=== PATIENT | male | born 1980 | race Two or more races ===

== ENCOUNTER 2025-04-04 14:37 | Inpatient (IN) | payer MEDICAID, OTHER ==
[~2025-04-04] VITALS: Ht 167.6 cm; Wt 100.0 kg
[~2025-04-04 14:37] MED LIST: FURO40TA4 PO; PANT40TA57 PO; SPIR100T4 PO
--- NOTE | 2025-04-04 15:13 | ED.PDOC ---
GI ASSESSMENT HPI Comments This is a 44 year old male MAURICIO presenting to the ED with chief complaint of abdominal pain. Patient reports that he has been experiencing RUQ abdominal pain since this morning after coughing, feeling a tearing sensation. Patient relays that he has also had associated SOB and abdominal distention for some time. Patient states he had last drank alcohol a month ago, has history of liver cirrhosis. EMS notes patient was given 100mcg of Fentanyl en route to the ED. Patient denies any chest pain, dizziness, fever, chills, N/V/D, or headache. Chief Complaint: Abdominal Pain Time Seen by MD: 15:08 Reviewed Notes: Nurses Notes, Finish Opener Notes, Medications, Allergies Allergies: Coded Allergies: NO KNOWN ALLERGIES (Unverified , 04/04/25) Information Source: Patient, Emergency Med Personnel Mode of Arrival: EMS Timing: Days Duration: Since onset Prehospital treatment: None Quality: Sharp Vomitus: None Stool: Normal Severity: Moderate Recent: None Recent Hx of: Liver Disease Pain Location: RUQ Modifying Factors: Nothing Associated sign and symptoms: Abdominal Pain Past Medical History PAST MEDICAL HISTORY: Liver Surgical History (Other): Paracentesis Family History Family History: Reviewed,noncontributory to illness Social History Smoker: Non-Smoker Alcohol: Sober Drugs: Denies Drug Use Lives In: Home Constitutional: denies: chills, diaphoresis, fatigue, fever, malaise, sweats, weakness, others EENTM: denies: blurred vision, double vision, ear bleeding, ear discharge, ear drainage, ear pain, ear ringing, eye pain, eye redness, hearing loss, mouth pain, mouth swelling, nasal discharge, nose bleeding, nose congestion, nose pain, photophobia, tearing, throat pain, throat swelling, voice changes, others Respiratory: reports: cough, shortness of breath; denies: hemoptysis, orthopnea, SOB at rest, SOB with excertion, stridor, wheezing, others Cardiovascular: denies: chest pain, dizzy spells, diaphoresis, Dyspnea on exertion, edema, irregular heart beat, left arm pain, lightheadedness, palpitations, PND, syncope, others Gastrointestinal: reports: abdomen distended, abdominal pain; denies: blood streaked bowels, constipated, diarrhea, dysphagia, difficulty swallowing, hematemesis, melena, nausea, poor appetite, poor fluid intake, rectal bleeding, rectal pain, vomiting, others Genitourinary: denies: burning, dysuria, flank pain, frequency, hematuria, incontinence, penile discharge, penile sore, pain, testicle pain, testicle swelling, urgency, others Neurological: denies: dizziness, fainting, headache, left sided numbness, left sided weakness, numbness, paresthesia, pre-existing deficit, right sided numbness, right sided weakness, seizure, speech problems, tingling, tremors, weakness, others Musculoskeletal: denies: back pain, gout, joint pain, joint swelling, muscle pain, muscle stiffness, neck pain, others Integumetry: reports: bruises, others (Jaundice); denies: change in color, change in hair/nails, dryness, laceration, lesions, lumps, rash, wounds Allergic/Immunocompromised: denies: Difficulty Healing, Frequent Infections, Hives, Itching, others Hematologic/Lymphatic: denies: anemia, blood clots, easy bleeding, easy bruising, swollen glands, others Endocrine: denies: excessive hunger, excessive sweating, excessive thirst, excessive urination, flushing, intolerance to cold, intolerance to heat, unexplained weight gain, unexplained weight loss, others Psychiatric: denies: anxiety, bipolar disorder, depression, hopeless, panic disorder, schizophrenia, sleepless, suicidal, others All Other Systems: Reviewed and Negative Physical Exam General Appearance: Moderate Distress, Normal HEENT: Normal ENT Inspection, Pharynx Normal, Scleral Icterus (L), Scleral Icterus (R), TMs Normal Neck: Full Range of Motion, Non-Tender, Normal, Normal Inspection Respiratory: Chest Non-Tender, No Accessory Muscle Use, No Respiratory Distress, Wheezing Cardiovascular: No Edema, No JVD, No Murmur, No Gallop, Normal Peripheral Pulses, Regular Rate/Rhythm Breast Exam: Deferred Gastrointestinal: Distended, No Organomegaly, No Pulsatile Mass, Normal Bowel Sounds, Soft Genitalia: Deferred Pelvic: Deferred Rectal: Deferred Extremities: No calf tenderness, Normal capillary refill, Normal range of motion, Non-tender, No pedal edema, Swelling (Left lower extremity) Musculoskeletal : Apperance: Normal Neurologic: Alert, audiometric technician II-XII nml as Tested, No Motor Deficits, Normal Affect, Normal Mood, No Sensory Deficits Cerebellar Function: NOT DONE Reflexes: NOT DONE Skin: Dry, Normal Color, Warm Peripheral Pulses: 3+ Radial (R), 3+ Radial (L) Lymphatic: No Adenopathy Was a procedure done? Was a procedure done?: No GI differential Dx Differential Diagnosis: Constipation, Diverticular disease, Esophagitis, Gastritis/PUD, Gastroenteritis X-Ray, Labs, Meds, VS Vital Signs Date Time Temp Pulse Resp B/P (MAP) Pulse Ox O2 Delivery O2 Flow Rate FiO2 04/04/25 14:43 98.8 119 16 146/92 95 98.8 Lab Test 04/04/25 14:47 Range/Units White Blood Count 8.2 4.4-10.8 10^3/uL Red Blood Count 2.90 L 4.5-5.90 10^6/uL Hemoglobin 11.4 L 13.5-17.5 g/dL Hematocrit 32.3 L 41.0-53.0 % Mean Corpuscular Volume 111.6 H 80.0-100.0 fL Mean Corpuscular Hemoglobin 39.3 H 28.0-32.0 pg Mean Corpuscular Hemoglobin Concent 35.2 32.0-36.0 g/dL Red Cell Distribution Width 16.6 H 11.8-14.3 % Platelet Count 88 L 140-450 10^3/uL Mean Platelet Volume 8.6 6.9-10.8 fL Neutrophils (%) (Auto) 60.5 37.0-80.0 % Lymphocytes (%) (Auto) 21.6 10.0-50.0 % Monocytes (%) (Auto) 11.2 0.0-12.0 % Eosinophils (%) (Auto) 5.3 0.0-7.0 % Basophils (%) (Auto) 1.4 0.0-2.0 % Neutrophils # (Auto) 5.0 1.6-8.6 10 ^3/uL Lymphocytes # (Auto) 1.8 0.4-5.4 10 ^3/uL Monocytes # (Auto) 0.9 0-1.3 10 ^3/uL Eosinophils # (Auto) 0.4 0-0.8 10 ^3/uL Basophils # (Auto) 0.1 0-0.2 10 ^3/uL Nucleated Red Blood Cells 0.2 % Platelet Estimate Pending Sodium Level 136 136-145 mmol/L Potassium Level 3.8 3.5-5.1 mmol/L Chloride Level 102 98-107 mmol/L Carbon Dioxide Level 25 20-31 mmol/L Anion Gap 9 5-15 Blood Urea Nitrogen < 5 L 9-23 mg/dL Creatinine 0.76 0.700-1.30 mg/dL Glomerular Filtration Rate Calc 115 >90 mL/min BUN/Creatinine Ratio 6.6 L 10.0-20.0 Serum Glucose 108 H 74-106 mg/dL Calcium Level 7.6 L 8.7-10.4 mg/dL Total Bilirubin 7.6 H 0.2-1.0 mg/dL Aspartate Amino Transferase (AST) 50 H 13-40 U/L Alanine Aminotransferase (ALT) 31 7-40 U/L Alkaline Phosphatase 134 H 46-116 U/L Total Protein 7.7 5.7-8.2 g/dL Albumin 2.3 L 3.2-4.8 g/dL Patient alert. Vitals stable. Abdomen is distended. Answering questions. Sclerae icterus. Liver enzymes elevated. Malnutrition. He did have a paracentesis. States that he has stopped drinking. Explained to the patient he will be admitted for further studies. Continue monitoring. Time of 1ST Reevaluation: 16:07 Reevaluation 1ST: Unchanged Patient Education/Counseling: Diagnosis, Treatment Family Education/Counseling: No Family Present SEPSIS Sepsis Screen Date sepsis recognized/suspect: Apr 04, 2025 Time Sepsis recognized/suspect: 8 Recent Procedure: No On Antibiotic Therapy: No Respiratory Rate >20: No Heart Rate >90: Yes Temp<36 C (96.8 F) or >38.3 C: No SBP <90 or MAP <65 mmHG: No New Acute Mental Status Change: No Is the patient on CPAP, BIPAP,: No Physician Orders Complete Blood Count (04/04/25 14:41) Chest Portable (04/04/25 14:41) Urinalysis (04/04/25 14:41) Ct Ab Pel Wo Con-No Oral Or Iv (04/04/25 14:41) Rbc Morphology (04/04/25 14:47) Vital Signs Date Time Temp Pulse Resp B/P (MAP) Pulse Ox O2 Delivery O2 Flow Rate FiO2 04/04/25 14:43 98.8 119 16 146/92 95 98.8 Laboratory Tests Test 04/04/25 14:47 White Blood Count 8.2 10^3/uL (4.4-10.8) Departure 1 Departure Time of Disposition: 15:43 Impression: Primary Impression: Liver cirrhosis Qualified Codes: K70.31 - Alcoholic cirrhosis of liver with ascites; K72.90 - Hepatic failure, unspecified without coma Additional Impressions: Severe malnutrition Congestive heart failure Qualified Codes: I50.43 - Acute on chronic combined systolic (congestive) and diastolic (congestive) heart failure Disposition: ADMITTED INPATIENT Admit to: Med Surg Condition: Guarded Critical Care Note Critical Care Time?: Yes (90 min-critical care time only) Stability Stability form required: No Heart Score Heart Score: Heart Score Response (Comments) Value History N/A 0 EKG N/A 0 Age N/A 0 Risk Factors N/A 0 Troponin N/A 0 Total 0 I personally scribed for JEREMY OLIVAREZ MD ([email or web address]) on 04/04/25 at 15:12. Electronically submitted by Scotty Schwartz ([email or web address]). JEREMY OLIVAREZ MD Apr 04, 2025 15:12
[2025-04-04 15:22] LABS: Alanine Aminotransferase 31 U/L (7-40); Anion Gap 9 (5-15); Carbon Dioxide 25 mmol/L (20-31); Chloride 102 mmol/L (98-107); Potassium 3.8 mmol/L (3.5-5.1); Total Protein 7.7 g/dL (5.7-8.2)
[2025-04-04 15:24] LABS: Hematocrit 32.3 % (41.0-53.0); Hemoglobin 11.4 g/dL (13.5-17.5); Mean Corpuscular Hemoglobin 39.3 pg (28.0-32.0); Mean Corpuscular Volume 111.6 fL (80.0-100.0); Nucleated Red Blood Cells % 0.2 %
[2025-04-04 15:28] LABS: Albumin 2.3 g/dL (3.2-4.8); Alkaline Phosphatase 134 U/L (46-116); BUN/Creatinine Ratio 6.6 (10.0-20.0); Bilirubin, Total 7.6 mg/dL (0.2-1.0); Blood Urea Nitrogen < 5 mg/dL (9-23); Calcium 7.6 mg/dL (8.7-10.4); Glucose 108 mg/dL (74-106); Sodium 136 mmol/L (136-145)
--- NOTE | 2025-04-04 15:53 | DVH ---
EXAM: CT CT AB PEL WO CON-NO ORAL OR IV History: liver Comparison Study: CT ABD/PEL on DOS: 03/11/25, CT ABD/PEL on DOS: 12/09/24 TECHNIQUE: Multidetector CT of the abdomen was performed from lung bases to pubic symphysis. Imaging was performed without IV contrast. Axial, coronal and sagittal multiplanar reformats were obtained from the axial data set by the technologist. Radiation Dose Information: CT Dose: CTDI volume is 21.89 mGy. Dose-length product is 1336.45 mGy*cm FINDINGS: Evaluation of solid organs is limited due to lack of intravenous contrast use. FINDINGS: Lung Bases: Mild atelectasis is seen at both lung bases. There is a mild left effusion. Liver: The liver is normal in size. No focal lesions. Gallbladder and Biliary Tree: Unremarkable Spleen: Unremarkable Pancreas: The pancreas is grossly normal in appearance. Adrenal Glands: Unremarkable Kidneys: Kidneys are grossly normal without calculi or hydronephrosis. Bladder: Grossly unremarkable for degree of distention. Bowel: The stomach is grossly normal in appearance. Small bowel and colon are normal in caliber and distribution. The appendix is not visualized; however, no secondary findings of acute appendicitis identified. Ascites: There is a very large volume of ascites Lymphadenopathy: No mesenteric, retroperitoneal or periportal lymphadenopathy. Abdominal Wall and Mesentery: Unremarkable. Vasculature: The visualized abdominal aorta is normal in size and caliber. Evaluation of abdominal and pelvic vessels is limited due to lack of intravenous contrast. Pelvic Organs: Unremarkable Musculoskeletal: No aggressive focal bony lesions, acute fractures or dislocation. Soft tissues: Unremarkable IMPRESSION: 1. Very large amount of ascites. 2. Mild atelectasis both lung bases. 3. Mild left effusion 4. Radiation optimization: All CT scans at this facility use at least one of these dose optimization techniques: automated exposure control mA and/or kV adjustment per patient size (includes targeted exams where dose is matched to clinical indication) or iterative reconstruction.
--- NOTE | 2025-04-04 15:54 | DVH ---
INDICATION: sob TECHNIQUE: Frontal view of the chest. COMPARISON: XR CHEST 1 VIEW on DOS: 03/11/25, XR RIBS LT on DOS: 12/09/24 FINDINGS: Lung volumes are low. There is bibasilar atelectasis. No definite effusions are seen. IMPRESSION: 1. Low lung volumes with bibasilar atelectasis.
[2025-04-04 16:01] VITALS: PULSE 115; RESP 25; O2SAT 92
[2025-04-04 16:05] LABS: Anisocytosis Slight; Macrocytosis Moderate
[2025-04-04 16:26] LABS: Urine Protein, UAD Negative (Negative)
[2025-04-04] MEDS ORDERED: IBUPROFEN 600 MG TAB PO PRN (16:30)
[2025-04-04] MEDS: ALBUMIN 25% 100 ML IV ONE (16:30)
[2025-04-04] MEDS ORDERED: MORPHINE SULFATE INJ 2 MG/ml SYRG IV PRN ×2 (16:30→18:00)
[2025-04-04] MEDS ORDERED: ONDANSETRON HCL 4 MG/2 ML VIAL IV PRN (16:30)
[2025-04-04] MEDS ORDERED: DOCUSATE SOD 100 MG CAP PO PRN (16:30)
[2025-04-04] MEDS: CALCIUM GLUC 1,000mg/50ml-NS 50 ML IV ONE (16:49)
--- NOTE | 2025-04-04 16:58 | DVH ---
EXAM: US ABDOMEN LIMITED INDICATION: FLUID CHECK FOR POSSIBLE PARACENTESIS TECHNIQUE:: Grayscale and color Doppler sonographic imaging evaluation of the region of concern. COMPARISON: US ABDOMEN COMPLETE on DOS: 03/19/25 FINDINGS: Ascites seen in all 4 quadrants. Small left-sided chest pleural effusion. IMPRESSION: 1. Small volume ascites.
[2025-04-04 17:05] LABS: INR 1.84 (0.9-1.15); Partial Thromboplastin Time 35.5 SEC (24.5-34.5); Prothrombin Time 18.4 sec (9.3-11.8)
--- NOTE | 2025-04-04 17:52 | DVHHP2 ---
History of Present Illness Reason for Visit: Liver cirrhosis History of Present Illness The patient is a 44-year-old male with past medical history of liver cirrhosis who presented to [facility] ED with complaint of acute abdominal pain. Patient reports that he has been experiencing right upper quadrant abdominal pain all day after coughing, feeling tearing sensation, associated with shortness of breaths and abdominal distention. Patient was seen and evaluated in the ED, laboratory data shows WBC 8.2, hemoglobin 11.4, hematocrit 32.3, platelet 59190, sodium 136, potassium 3.8, BUN < 5, creatinine 0.76, GFR 115, glucose 108, calcium 7.6, albumin 2.3, total bilirubin 7.6, AST 50, ALT 31, alkaline phos 134, PT 18.4, INR 1.84, APTT 35.5, blood pressure 136/85, heart rate 105, temperature 99.1 F, O2 saturation 94% on oxygen. Abdomen/pelvis CT revealing very large amount of ascites, mild atelectasis both lower bases, mild left effusion. Please see medication orders section in the computer. On my assessment, patient denied chest pain, no headache, dizziness, diaphoresis, c urrently on oxygen, no diarrhea, nausea, vomiting, fever, no chills. Patient was admitted for further evaluation and medical management. Past Medical History Liver disease Past Surgical History Paracentesis Family History Reviewed, noncontributory to the management of this case. Past Social History The patient lives at home, denies smoking, sober alcohol, denies illicit drugs abuse. Review of Systems Constitutional: Yes: Weakness; No: Fever, Chills, Sweats, Malaise, Other Eyes: No: Pain, Vision change, Conjunctivae inflammation, Eyelid inflammation, Other, Redness ENT: No: Ear pain, Ear discharge, Nose pain, Nose discharge, Nose congestion, Mouth pain, Mouth swelling, Throat pain, Throat swelling, Other Respiratory: Cough, Shortness of breath; No: Dry, SOB with excertion, Wheezing, Hemoptysis, Pleuritic Pain, Sputum, Wheezing, Other Cardiovascular: No: Chest Pain, Palpitations, Orthopnea, Paroxysmal Noc. Dyspnea, Edema, Lt Headedness, Other Gastrointestinal: Abdominal Pain, Other (Distended abdomen); No: Nausea, Vomiting, Diarrhea, Constipation, Melena, Hematochezia Genitourinary: No Dysuria, No Frequency, No Incontinence, No Hematuria, No Retention, No Other Musculoskeletal: No: other, neck pain, shoulder pain, arm pain, back pain, hand pain, leg pain, foot pain Skin: Jaundice, Other (Reports bruises); No: Rash, Lesions, Bruising Neurological: No: Weakness, Numbness, Incoordination, Change in speech, Confusion, Seizures, Other Allergies: Coded Allergies: NO KNOWN ALLERGIES (Unverified , 04/04/25) Medications Current Medications Medications Dose Ordered Sig/Sam Route Start Time Stop Time Status Last Admin Dose Admin Sodium Chloride 10 ml Q8HR IV 04/04/25 22:00 Acetaminophen/ Hydrocodone Bitart 1 tab Q4HP PRN PO 04/04/25 16:30 Ondansetron HCl 4 mg Q4HP PRN IV 04/04/25 16:30 Docusate Sodium 100 mg BIDPRN PRN PO 04/04/25 16:30 Ibuprofen 600 mg Q8HP PRN PO 04/04/25 16:30 Hold Morphine Sulfate 2 mg Q4HPRN PRN IV 04/04/25 17:00 Exam Vital Signs Vital Signs Date Time Temp Pulse Resp B/P (MAP) Pulse Ox O2 Delivery O2 Flow Rate FiO2 04/04/25 16:01 115 25 92 Room Air* 0 21 04/04/25 16:01 99.1 136/85 (102) 99.1 General Appearance: Alert, Oriented X3, Cooperative, No acute distress HEENT: Atraumatic, PERRLA, EOMI, Mucous membr. moist/pink Respiratory: Normal air movement Cardiovascular: Regular rate, Normal S1, Normal S2, No murmurs Abdominal: Normal bowel sounds, Soft, No masses, Other (Reports tenderness) Extremities: No clubbing, No cyanosis, No edema, Normal pulses, No tenderness/swelling Skin: No rashes, No significant lesion Neuro: Normal speech, Normal tone, Sensation intact, Cranial nerves 3-12 NL, Reflexes 2+, Other (Generalized weakness) Psych/Mental Status: Mental status NL, Mood NL Labs/Xrays Labs Test 04/04/25 16:35 04/04/25 16:33 04/04/25 15:46 04/04/25 14:47 Range/Units Ammonia 52 H 11-32 umol/L Prothrombin Time 18.4 H 9.3-11.8 sec Prothrombin Time INR 1.84 H 0.9-1.15 Activated Partial Thromboplast Time 35.5 H 24.5-34.5 SEC Urine Color Yellow Yellow Urine Clarity Clear Clear Urine pH 6.5 5.0-9.0 Urine Specific [place]ins 1.015 1.001-1.035 Urine Protein Negative Negative Urine Ketones Negative Negative Urine Blood Negative Negative /uL Urine Nitrite Negative Negative Urine Bilirubin 1+ Negative Urine Urobilinogen 12 H Negative mg/dL Urine Leukocyte Esterase Negative Negative /uL Urine RBC <1 0 - 3 /hpf Urine Microscopic WBC 0-3 /HPF Urine Squamous Epithelial Cells Few <5 /hpf Urine Bacteria None seen None Seen /hpf Urine Glucose Normal Normal mg/dL White Blood Count 8.2 4.4-10.8 10^3/uL Red Blood Count 2.90 L 4.5-5.90 10^6/uL Hemoglobin 11.4 L 13.5-17.5 g/dL Hematocrit 32.3 L 41.0-53.0 % Mean Corpuscular Volume 111.6 H 80.0-100.0 fL Mean Corpuscular Hemoglobin 39.3 H 28.0-32.0 pg Mean Corpuscular Hemoglobin Concent 35.2 32.0-36.0 g/dL Red Cell Distribution Width 16.6 H 11.8-14.3 % Platelet Count 88 L 140-450 10^3/uL Mean Platelet Volume 8.6 6.9-10.8 fL Neutrophils (%) (Auto) 60.5 37.0-80.0 % Lymphocytes (%) (Auto) 21.6 10.0-50.0 % Monocytes (%) (Auto) 11.2 0.0-12.0 % Eosinophils (%) (Auto) 5.3 0.0-7.0 % Basophils (%) (Auto) 1.4 0.0-2.0 % Neutrophils # (Auto) 5.0 1.6-8.6 10 ^3/uL Lymphocytes # (Auto) 1.8 0.4-5.4 10 ^3/uL Monocytes # (Auto) 0.9 0-1.3 10 ^3/uL Eosinophils # (Auto) 0.4 0-0.8 10 ^3/uL Basophils # (Auto) 0.1 0-0.2 10 ^3/uL Nucleated Red Blood Cells 0.2 % Platelet Estimate Decreased Anisocytosis (manual) Slight Macrocytosis Moderate Sodium Level 136 136-145 mmol/L Potassium Level 3.8 3.5-5.1 mmol/L Chloride Level 102 98-107 mmol/L Carbon Dioxide Level 25 20-31 mmol/L Anion Gap 9 5-15 Blood Urea Nitrogen < 5 L 9-23 mg/dL Creatinine 0.76 0.700-1.30 mg/dL Glomerular Filtration Rate Calc 115 >90 mL/min BUN/Creatinine Ratio 6.6 L 10.0-20.0 Serum Glucose 108 H 74-106 mg/dL Calcium Level 7.6 L 8.7-10.4 mg/dL Total Bilirubin 7.6 H 0.2-1.0 mg/dL Aspartate Amino Transferase (AST) 50 H 13-40 U/L Alanine Aminotransferase (ALT) 31 7-40 U/L Alkaline Phosphatase 134 H 46-116 U/L Total Protein 7.7 5.7-8.2 g/dL Albumin 2.3 L 3.2-4.8 g/dL PATIENT: GLORIA CABRERA ACCT: [id number] UNIT: [id number] : 1980 LOC: ER ROOM / BED: / AGE / SEX: 44 / M ADM STATUS: REG ER SERVICE 1441 ORDERING PHYSICIAN: JEREMY OLIVAREZ MD PROCEDURE(s): ABPL - CT AB PEL WO CON-NO ORAL OR IV REASON: liver ORDER NUMBER(s): [id number], ACCESSION NUMBER(s): [id number] EXAM: CT CT AB PEL WO CON-NO ORAL OR IV History: liver Comparison Study: CT ABD/PEL on DOS: 03/11/25, CT ABD/PEL on DOS: 12/09/24 TECHNIQUE: Multidetector CT of the abdomen was performed from lung bases to pubic symphysis. Imaging was performed without IV contrast. Axial, coronal and sagittal multiplanar reformats were obtained from the axial data set by the technologist. Radiation Dose Information: CT Dose: CTDI volume is 21.89 mGy. Dose-length product is 1336.45 mGy*cm FINDINGS: Evaluation of solid organs is limited due to lack of intravenous contrast use. FINDINGS: Lung Bases: Mild atelectasis is seen at both lung bases. There is a mild left effusion. Liver: The liver is normal in size. No focal lesions. Gallbladder and Biliary Tree: Unremarkable Spleen: Unremarkable Pancreas: The pancreas is grossly normal in appearance. Adrenal Glands: Unremarkable Kidneys: Kidneys are grossly normal without calculi or hydronephrosis. Bladder: Grossly unremarkable for degree of distention. Bowel: The stomach is grossly normal in appearance. Small bowel and colon are normal in caliber and distribution. The appendix is not visualized; however, no secondary findings of acute appendicitis identified. Ascites: There is a very large volume of ascites Lymphadenopathy: No mesenteric, retroperitoneal or periportal lymphadenopathy. Abdominal Wall and Mesentery: Unremarkable. Vasculature: The visualized abdominal aorta is normal in size and caliber. Evaluation of abdominal and pelvic vessels is limited due to lack of intravenous contrast. Pelvic Organs: Unremarkable Musculoskeletal: No aggressive focal bony lesions, acute fractures or dislocation. Soft tissues: Unremarkable IMPRESSION: 1. Very large amount of ascites. 2. Mild atelectasis both lung bases. 3. Mild left effusion ORDERING PHYSICIAN: JEREMY OLIVAREZ MD PROCEDURE(s): CXRP - CHEST PORTABLE REASON: sob ORDER NUMBER(s): [id number], ACCESSION NUMBER(s): [id number] INDICATION: sob TECHNIQUE: Frontal view of the chest. COMPARISON: XR CHEST 1 VIEW on DOS: 03/11/25, XR RIBS LT on DOS: 12/09/24 FINDINGS: Lung volumes are low. There is bibasilar atelectasis. No definite effusions are seen. IMPRESSION: 1. Low lung volumes with bibasilar atelectasis. ORDERING PHYSICIAN: JEREMY OLIVAREZ MD PROCEDURE(s): ABDL - ABDOMEN LIMITED REASON: FLUID CHECK FOR POSSIBLE PARACENTESIS ORDER NUMBER(s): [id number], ACCESSION NUMBER(s): [id number] EXAM: US ABDOMEN LIMITED INDICATION: FLUID CHECK FOR POSSIBLE PARACENTESIS TECHNIQUE:: Grayscale and color Doppler sonographic imaging evaluation of the region of concern. COMPARISON: US ABDOMEN COMPLETE on DOS: 03/19/25 FINDINGS: Ascites seen in all 4 quadrants. Small left-sided chest pleural effusion. IMPRESSION: 1. Small volume ascites. SEPSIS Sepsis Screen Date sepsis recognized/suspect: Apr 04, 2025 Time Sepsis recognized/suspect: 1550 Recent Procedure: No On Antibiotic Therapy: No Respiratory Rate >20: No Heart Rate >90: No Temp<36 C (96.8 F) or >38.3 C: No SBP <90 or MAP <65 mmHG: No New Acute Mental Status Change: No Is the patient on CPAP, BIPAP,: No Physician Orders Chest Portable (04/04/25 14:41) Ct Ab Pel Wo Con-No Oral Or Iv (04/04/25 14:41) Allergies (04/04/25 16:22) Code Status (04/04/25 16:22) Sodium Chloride Lock (Saline Lock Ns) (04/04/25 22:00) Oxygen Per Hour (04/04/25 16:22) Hydrocodone-Acet 5/325mg Tab ([place] 5/32 (04/04/25 16:30) Ondansetron Hcl (Zofran) (04/04/25 16:30) Docusate Sodium Capsule (Colace Capsule) (04/04/25 16:30) Complete Blood Count (04/05/25 04:00) Comprehensive Metabolic Panel (04/05/25 04:00) Condition: Serious (04/04/25 16:22) Clear Liq Diet (04/04/25 Dinner) Bedrest With Bathroom Privileg (04/04/25 16:22) Sequential Compression Device (04/04/25 ) Ibuprofen Tablet (Motrin Tablet) (04/04/25 16:30) Abdomen Limited (04/04/25 ) Morphine Sulfate Injection (04/04/25 17:00) Paracentesis (04/05/25 07:00) Admit (04/04/25 17:51) Nitroglycerin Sublingual (Ntrostat Subli (04/04/25 18:00) Morphine Sulfate Injection (04/04/25 18:00) Stat Ekg For Chest Pain (04/04/25 17:51) Notify Md Of Changes From Base (04/04/25 17:51) Lead Material Handler For 24 Hours (04/04/25 17:51) Emergency Dysrhythmia Protocol (04/04/25 17:51) Rhythm Strips Once Every Shift (04/04/25 17:51) Oxygen By Nasal Cannula (04/04/25 17:51) Vital Signs Date Time Temp Pulse Resp B/P (MAP) Pulse Ox O2 Delivery O2 Flow Rate FiO2 04/04/25 16:01 115 25 92 Room Air* 0 21 04/04/25 16:01 99.1 115 25 136/85 (102) 92 99.1 04/04/25 14:43 98.8 119 16 146/92 95 98.8 Laboratory Tests Test 04/04/25 14:47 White Blood Count 8.2 10^3/uL (4.4-10.8) Medications Medications Dose Ordered Sig/Sam Route Start Time Stop Time Status Last Admin Dose Admin Albumin Human 100 ml @ 100 mls/hr ONCE ONCE IV 04/04/25 16:30 04/04/25 17:29 DC 04/04/25 16:30 100 MLS/HR Calcium Gluconate/ Sodium Chloride 50 ml @ 100 mls/hr ONCE ONCE IV 04/04/25 16:30 04/04/25 16:59 DC 04/04/25 16:49 100 MLS/HR Assessment/Plan Assessment/Plan Liver cirrhosis Thrombocytopenia Coagulopathy Severe malnutrition Alcoholic cirrhosis of liver with ascites Hepatic failure, unspecified without coma Generalized weakness Plan 1. Admit to telemetry unit 2. Breathing treatment 3. Pain control management 4. Management of fluids and electrolytes 5. Consultation for hospitalist 6. Diagnostic tests abdomen/pelvis CT 7. DVT prophylaxis on SCDs 8. Repeat labs CBC, CMP in a.m. 9. Continue with current medical management 10. Treatment plan discussed with patient and RN. Patient verbalized understanding. Plan discussed with: Patient, Other (RN) My Orders Orders - WILFREDO CONTEH DNP Procedure Category Date Status Time Allergies ZACH 04/04/25 In Process 16:22 Code Status CODE 04/04/25 Transmitted 16:22 Sodium Chloride Lock PHA 04/04/25 In Process (Saline Lock Ns) 22:00 Oxygen Per Hour RT 04/04/25 Transmitted 16:22 Hydrocodone-Acet PHA 04/04/25 In Process 5/325mg Tab ([place] 16:30 Ondansetron Hcl PHA 04/04/25 In Process (Zofran) 16:30 Docusate Sodium PHA 04/04/25 In Process Capsule (Colace 16:30 Complete Blood Count LAB 04/05/25 Verified 04:00 Comprehensive LAB 04/05/25 Verified Metabolic Panel 04:00 Condition: Serious ZACH 04/04/25 In Process 16:22 Clear Liq Diet DIET 04/04/25 Transmitted Dinner Bedrest With Bathroom ZACH 04/04/25 In Process Privileg 16:22 Sequential ZACH 04/04/25 In Process Compression Device Ibuprofen Tablet PHA 04/04/25 In Process (Motrin Tablet) 16:30 Morphine Sulfate PHA 04/04/25 In Process Injection 17:00 Paracentesis US 04/05/25 Logged 07:00 Admit ADMIT 04/04/25 Verified 17:51 Nitroglycerin [facility] 04/04/25 Verified Sublingual (Ntrostat 18:00 Morphine Sulfate PHA 04/04/25 Verified Injection 18:00 Stat Ekg For Chest [facility] 04/04/25 Verified Pain 17:51 Notify Md Of Changes [facility] 04/04/25 Verified From Base 17:51 Lead Material Handler For [facility] 04/04/25 Verified 24 Hours 17:51 Emergency Dysrhythmia [facility] 04/04/25 Verified Protocol 17:51 Rhythm Strips Once [facility] 04/04/25 Verified Every Shift 17:51 Oxygen By Nasal RT 04/04/25 Verified Cannula 17:51 Problem List: (1) Liver cirrhosis (2) Thrombocytopenia (3) Coagulopathy (4) Severe malnutrition (5) Alcoholic cirrhosis of liver with ascites (6) Hepatic failure, unspecified without coma (7) Generalized weakness Date of Service: Apr 04, 2025 Billing Provider: WILFREDO CONTEH DNP Common Visit Codes: [id number] INP/OBS CARE (HIGH) WILFREDO CONTEH DNP Apr 04, 2025 17:52
[2025-04-04] MEDS ORDERED: NITROGLYCERIN 0.4 MG SL TAB SL PRN (18:00)
[2025-04-04 19:33] VITALS: BP 132/82; PULSE 102; PULSE 103; RESP 18; TEMP 98.6; O2SAT 96
[2025-04-04 20:00] VITALS: PULSE 102; RESP 18; O2SAT 97
[2025-04-04] MEDS: SODIUM CHLOR 0.9% PF (SALINE LOCK) 10ML VIAL/SYR IV SCH (21:40)
[2025-04-04] MEDS: MORPHINE SULFATE 4 MG/ML SYR/VIAL IV PRN (21:40)
[2025-04-04 23:20] VITALS: PULSE 103; RESP 18; O2SAT 94
[2025-04-04 23:33] VITALS: BP 139/90; PULSE 103; RESP 18; TEMP 98.3; O2SAT 94
[2025-04-04] MEDS: HYDROcodone-ACET 5/325MG TAB PO PRN (23:51)
[2025-04-05] VITALS (8 sets, daily range): BP systolic 113–131; BP diastolic 71–87; PULSE 70–103; RESP 16–18; TEMP 97.8–98.4; O2SAT 93–100
[2025-04-05 06:05] LABS: Hematocrit 29.2 % (41.0-53.0); Hemoglobin 10.2 g/dL (13.5-17.5); Mean Corpuscular Hemoglobin 38.9 pg (28.0-32.0); Mean Corpuscular Volume 111.5 fL (80.0-100.0); Nucleated Red Blood Cells % 0.3 %
[2025-04-05 06:11] LABS: Alanine Aminotransferase 24 U/L (7-40); Alkaline Phosphatase 106 U/L (46-116); Anion Gap 7 (5-15); Carbon Dioxide 26 mmol/L (20-31); Chloride 103 mmol/L (98-107); Glucose 90 mg/dL (74-106); Potassium 3.9 mmol/L (3.5-5.1); Total Protein 7.0 g/dL (5.7-8.2)
[2025-04-05 06:14] LABS: Albumin 2.2 g/dL (3.2-4.8); BUN/Creatinine Ratio 7.4 (10.0-20.0); Bilirubin, Total 8.2 mg/dL (0.2-1.0); Blood Urea Nitrogen < 5 mg/dL (9-23); Calcium 7.7 mg/dL (8.7-10.4); Sodium 136 mmol/L (136-145)
--- NOTE | 2025-04-05 11:07 | DVH ---
US limited, RUQ INDICATION: rule out hepatobiliary obstruction COMPARISON: US ABDOMEN LIMITED on DOS: 04/04/25, US GUIDED PARACENTESIS on DOS: 03/19/25 TECHNIQUE: Limited ultrasound of the abdomen was performed and reviewed. FINDINGS: The pancreas is not seen due to overlying bowel gas. The liver is echogenic and nodular suggestive of cirrhosis. Partially visualized ascites. Cholelithiasis. No significant gallbladder distention. Mild gallbladder wall thickening. Negative sonographic Loera's sign. The common bile duct measures 4 mm. The right kidney is 12.2 cm. No evidence for hydronephrosis. IMPRESSION: Cirrhosis with partially visualized ascites. Cholelithiasis with mild gallbladder wall thickening, nonspecific. This could be reactive.
[2025-04-05] MEDS: MULTIPLE VITAMINS W/ MINERALS TAB PO ONE (11:48)
[2025-04-05] MEDS: THIAMINE HCL 100 MG TAB PO ONE (11:49)
[2025-04-05] MEDS: ALBUMIN 25% 50 ML IV ONE (11:50)
[2025-04-05] MEDS: PIPERACILLIN-TAZOB 3.375GM 100 ML IV SCH (11:51)
--- NOTE | 2025-04-05 14:34 | DVHPNRES ---
Progress Note Date Seen: Apr 05, 2025 Resident Creating Document: JHONNY HUTCHISON RESIDENT Medical Necessity Reason Pt with a Central, PICC or Fol: No Subjective Review of Systems Mr. Bro Palumbo, 44-year-old male with past medical history of hypertension (on unknown medications), alcohol-induced liver cirrhosis with recurrent ascites, history of multiple episodes of ascitic fluid removal presented to the ED with the complaints of right upper quadrant pain. The patient described the pain as, "as if my ribs breaking."The pain is 10/10, nonradiating, constant, the pain aggravates on coughing and improves on taking [place] in the hospital. Past medical and surgical history: As above Alcohol: Patient drinks alcohol every day since 2010, quit 4 months ago. Smoking and drugs: None Full code Objective vital signs Vital Sign Date Time Temp Pulse Resp B/P (MAP) Pulse Ox O2 Delivery O2 Flow Rate FiO2 04/05/25 13:00 97.8 103 18 131/84 (100) 97 97.8 04/04/25 23:20 Room Air* 0 21 Total Intake and Output 04/04/25 04/04/25 04/05/25 15:00 23:00 07:00 Intake Total 150 ml 300 ml Balance 150 ml 300 ml medications Current Medications Medications Dose Ordered Sig/Sam Route Start Time Stop Time Status Last Admin Dose Admin Sodium Chloride 10 ml Q8HR IV 04/04/25 22:00 04/05/25 14:06 10 ML Acetaminophen/ Hydrocodone Bitart 1 tab Q4HP PRN PO 04/04/25 16:30 04/05/25 12:49 1 TAB Ondansetron HCl 4 mg Q4HP PRN IV 04/04/25 16:30 Docusate Sodium 100 mg BIDPRN PRN PO 04/04/25 16:30 Morphine Sulfate 2 mg Q4HPRN PRN IV 04/04/25 17:00 04/04/25 21:40 2 MG Nitroglycerin 0.4 mg Q5MINP PRN SL 04/04/25 18:00 Morphine Sulfate 2 mg Q30M PRN IV 04/04/25 18:00 Lactulose 30 ml DAILY PO 04/06/25 10:00 Piperacillin Sod/ Tazobactam Sod 100 ml @ 25 mls/hr Q6HR IV 04/05/25 12:00 04/05/25 11:51 25 MLS/HR Thiamine HCl 100 mg DAILY PO 04/06/25 10:00 Multivitamins/ Minerals 1 tab DAILY PO 04/06/25 10:00 Spironolactone 50 mg DAILY PO 04/06/25 10:00 Furosemide 20 mg DAILY IV 04/06/25 10:00 Examination Pt is lying on bed General Appearance: Alert, Oriented X3, Cooperative, Mild distress HEENT: Atraumatic, Mucous membranes moist/pink Respiratory: Crackles, Normal air movement, No added sounds Cardiovascular: Regular rate, Normal S1oft, no distention, no tenderness Extremities: No edema, Normal pulses, No tenderness/swelling Skin: No Significant rash, except past surgical scars Neuro: Normal speech, sensorimotor deficits none Psych/Mental Status: Mental status NL, Mood NL Nurse was there as cnc set up operator during examination laboratory and microbiology Laboratory Tests 04/05/25 04:53 Test 04/05/25 04:53 Range/Units Serum Glucose 90 74-106 mg/dL Labs and/or images reviewed: Labs reviewed by me, Image(s) reviewed by me Problem List/Assessment/Plan Problem List/Assessment/Plan Liver cirrhosis with decompensation with ascites Ascites secondary to portal hypertension Hepatic encephalopathy precaution -furosemide and spironolactone -low-sodium diet -IV albumin -monitor electrolytes and renal function -lactulose -Thiamine and banana bag started Macrocytic anemia Hemoglobin 10.2, MCV 111.5 -follow up vitamin B12 level Thrombocytopenia Monitor platelet count SBP prophylaxis -on Zosyn GI prophylaxis: Not indicated DVT prophylaxis: SCDs Diet: Clear liquid Goals of care discussed with the patient for more than 27 minutes: Full code status Case discussed with Dr. Orellana , patient and RN Plan discussed with: Patient, Other (RN) My Orders My Orders Orders - JHONNY HUTCHISON RESIDENT Procedure Category Date Status Time * Radiologist Consult CONS 04/05/25 Transmitted 10:17 Visit Coding STANDARD RES Billing Provider: CHARLENE ORELLANA MD Date of Service if different f: Apr 05, 2025 Common Visit Codes: [id number] INP/OBS CARE(HIGH) JHONNY HUTCHISON Apr 05, 2025 14:34 CHARLENE ORELLANA MD Apr 06, 2025 00:14
--- NOTE | 2025-04-05 16:54 | DVH ---
US PARACENTESIS, HISTORY: ASCITES PROCEDURE: Informed consent was obtained. The patient was placed in supine position. A limited localization ultrasound of the abdomen was obtained, and the skin site over the largest pocket of fluid was marked and entry site was prepped with chlorhexidine which was allowed to dry and draped in the usual sterile fashion. Time out was performed. Following administration of 1% lidocaine local anesthetic, a 5 [place] Citizen centesis needle catheter was percutaneously inserted into the peritoneal collection until fluid was aspirated. The catheter was advanced into the fluid collection and the needle removed. About 5200 cc of fluid was aspirated and specimen sent for appropriate cultures/cytology/cultures and cy tology. The catheter was then removed and a sterile dressing applied. No immediate complication was identified. FINDINGS: Limited ultrasound imaging demonstrates moderate ascites. Aspirated fluid was clear and serous. IMPRESSION: US-guided paracentesis with 5.2L removed.
[2025-04-06] VITALS (7 sets, daily range): BP systolic 107–134; BP diastolic 50–85; PULSE 96–134; RESP 17–20; TEMP 36.8; O2SAT 90–94
[2025-04-06 06:26] LABS: Hematocrit 32.4 % (41.0-53.0); Hemoglobin 11.2 g/dL (13.5-17.5); Mean Corpuscular Hemoglobin 38.5 pg (28.0-32.0); Mean Corpuscular Volume 111.2 fL (80.0-100.0); Nucleated Red Blood Cells % 0.1 %
[2025-04-06 06:55] LABS: Alanine Aminotransferase 26 U/L (7-40); Alkaline Phosphatase 101 U/L (46-116); Anion Gap 6 (5-15); Carbon Dioxide 26 mmol/L (20-31); Chloride 102 mmol/L (98-107); Glucose 79 mg/dL (74-106); Potassium 3.9 mmol/L (3.5-5.1); Total Protein 7.1 g/dL (5.7-8.2)
[2025-04-06 07:00] LABS: Albumin 2.3 g/dL (3.2-4.8); BUN/Creatinine Ratio 7.5 (10.0-20.0); Bilirubin, Total 8.6 mg/dL (0.2-1.0); Blood Urea Nitrogen < 5 mg/dL (9-23); Calcium 7.8 mg/dL (8.7-10.4); Sodium 134 mmol/L (136-145)
[2025-04-06 07:25] LABS: Magnesium 1.8 mg/dL (1.6-2.6)
[2025-04-06] MEDS: SPIRONOLACTONE 25 MG TAB PO SCH (09:26)
[2025-04-06] MEDS: THIAMINE HCL 100 MG TAB PO SCH (09:26)
[2025-04-06] MEDS: FUROSEMIDE 20 MG/2 ML VIAL IV SCH (09:27)
[2025-04-06] MEDS: MULTIPLE VITAMINS W/ MINERALS TAB PO SCH (09:27)
[2025-04-06] MEDS: LACTULOSE 20Gm/30ML SOLN PO SCH (09:27)
[2025-04-06] MEDS ORDERED: LACT10SO3 PO (12:17)
[2025-04-06] MEDS ORDERED: CIPR-173 PO (12:17)
[2025-04-06] MEDS ORDERED: METR-344 PO (12:17)
[2025-04-06 13:07] LABS: Glucose, Body Fluid 144.0 mg/dL (.); LD, Body Fluid 68.0 IU/L (.)
--- NOTE | 2025-04-06 17:14 | DVHDSRES ---
Discharge Summary Date of Admission Resident Creating Document: JHONNY HUTCHISON RESIDENT Apr 04, 2025 at 17:51 Date of Discharge: Apr 06, 2025 Admitting Diagnosis Liver cirrhosis with ascites Labs/Diagnostic Data: Laboratory Results Test 04/06/25 04:44 04/05/25 15:05 04/05/25 04:53 04/04/25 16:35 White Blood Count 5.4 10^3/uL (4.4-10.8) Red Blood Count 2.91 10^6/uL (4.5-5.90) Hemoglobin 11.2 g/dL (13.5-17.5) Hematocrit 32.4 % (41.0-53.0) Mean Corpuscular Volume 111.2 fL (80.0-100.0) Mean Corpuscular Hemoglobin 38.5 pg (28.0-32.0) Mean Corpuscular Hemoglobin Concent 34.6 g/dL (32.0-36.0) Red Cell Distribution Width 16.4 % (11.8-14.3) Platelet Count 78 10^3/uL (140-450) Mean Platelet Volume 8.8 fL (6.9-10.8) Neutrophils (%) (Auto) 51.5 % (37.0-80.0) Lymphocytes (%) (Auto) 26.8 % (10.0-50.0) Monocytes (%) (Auto) 13.4 % (0.0-12.0) Eosinophils (%) (Auto) 6.2 % (0.0-7.0) Basophils (%) (Auto) 2.1 % (0.0-2.0) Neutrophils # (Auto) 2.8 10 ^3/uL (1.6-8.6) Lymphocytes # (Auto) 1.4 10 ^3/uL (0.4-5.4) Monocytes # (Auto) 0.7 10 ^3/uL (0-1.3) Eosinophils # (Auto) 0.3 10 ^3/uL (0-0.8) Basophils # (Auto) 0.1 10 ^3/uL (0-0.2) Nucleated Red Blood Cells 0.1 % Sodium Level 134 mmol/L (136-145) Potassium Level 3.9 mmol/L (3.5-5.1) Chloride Level 102 mmol/L (98-107) Carbon Dioxide Level 26 mmol/L (20-31) Anion Gap 6 (5-15) Blood Urea Nitrogen < 5 mg/dL (9-23) Creatinine 0.67 mg/dL (0.700-1.30) Glomerular Filtration Rate Calc 120 mL/min (>90) BUN/Creatinine Ratio 7.5 (10.0-20.0) Serum Glucose 79 mg/dL (74-106) Calcium Level 7.8 mg/dL (8.7-10.4) Magnesium Level 1.8 mg/dL (1.6-2.6) Total Bilirubin 8.6 mg/dL (0.2-1.0) Aspartate Amino Transferase (AST) 54 U/L (13-40) Alanine Aminotransferase (ALT) 26 U/L (7-40) Alkaline Phosphatase 101 U/L (46-116) Total Protein 7.1 g/dL (5.7-8.2) Albumin 2.3 g/dL (3.2-4.8) Body Fluid Source Peritoneal fluid Body Fluid pH 8.0 Body Fluid WBC (Manual) 192 CUMM (0-200) Body Fluid RBC (Manual) 364 CUMM (0-2000) Body Fluid Mononuclear Cells 92 % Body Fluid Polymorphonuclear Cells 8 % (0-25) Body Fluid Glucose 144 mg/dL (.) Body Fluid Total Protein 1.3 g/dL (.) Body Fluid Lactate Dehydrogenase 68 IU/L (.) Lipase 27 U/L (12-53) Vitamin B12 Level 1025 pg/mL (211-911) Ammonia 52 umol/L (11-32) Test 04/04/25 16:33 04/04/25 15:46 04/04/25 14:47 Prothrombin Time 18.4 sec (9.3-11.8) Prothrombin Time INR 1.84 (0.9-1.15) Activated Partial Thromboplast Time 35.5 SEC (24.5-34.5) Urine Color Yellow (Yellow) Urine Clarity Clear (Clear) Urine pH 6.5 (5.0-9.0) Urine Specific [place] 1.015 (1.001-1.035) Urine Protein Negative (Negative) Urine Ketones Negative (Negative) Urine Blood Negative /uL (Negative) Urine Nitrite Negative (Negative) Urine Bilirubin 1+ (Negative) Urine Urobilinogen 12 mg/dL (Negative) Urine Leukocyte Esterase Negative /uL (Negative) Urine RBC <1 /hpf (0 - 3) Urine Microscopic WBC /HPF (0-3) Urine Squamous Epithelial Cells Few /hpf (<5) Urine Bacteria None seen /hpf (None Seen) Urine Glucose Normal mg/dL (Normal) Platelet Estimate Decreased Anisocytosis (manual) Slight Macrocytosis Moderate B-Type Natriuretic Peptide 36.23 pg/mL (0-100) Other Laboratory Tests 04/06/25 04:44 Brief Hx & Hospital Course: Mr. Bro Cabrera, 44-year-old male with past medical history of hypertension (on unknown medications), alcohol-induced liver cirrhosis with recurrent ascites, history of multiple episodes of ascitic fluid removal presented to the ED with the complaints of right upper quadrant pain. The patient described the pain as, "as if my ribs breaking."The pain is 10/10, nonradiating, constant, the pain aggravates on coughing and improves on taking [place] in the hospital. Past medical and surgical history: As above Alcohol: Patient drinks alcohol every day since 2010, quit 4 months ago. Smoking and drugs: None Full code Brief hospital course: The patient was treated with Zosyn, lactulose, albumin. IR was consulted and 5.2 L ascitic fluid was removed. The patient's symptoms improved. He was discharged home on ciprofloxacin, metronidazole and lactulose. The patient was advised to follow up outpatient with PCP, DC clinic and GI. The day of discharge patient was hemodynamically stable, verbalized understanding of the treatment plan and follow up recommendations. 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 The patient was placed in supine position. A limited localization ultrasound of the abdomen was obtained, and the skin site over the largest pocket of fluid was marked and entry site was prepped with chlorhexidine which was allowed to dry and draped in the usual sterile fashion. Time out was performed. Following administration of 1% lidocaine local anesthetic, a 5 Yi centesis needle catheter was percutaneously inserted into the peritoneal collection until fluid was aspirated. The catheter was advanced into the fluid collection and the needle removed. About 5200 cc of fluid was aspirated and specimen sent for appropriate cultures/cytology/cultures and cytology. The catheter was then removed and a sterile dressing applied. No immediate complication was identified. FINDINGS: Limited ultrasound imaging demonstrates moderate ascites. Aspirated fluid was clear and serous. IMPRESSION: US-guided paracentesis with 5.2L removed. PATIENT: BRO CABRERA ACCT: [id number] UNIT: [id number] : 1980 LOC: [facility] ROOM / BED: [facility] / A AGE / SEX: 44 / M ADM STATUS: ADM IN SERVICE 1015 ORDERING PHYSICIAN: ELXII DIA PROCEDURE(s): LIVUS - LIVER REASON: rule out hepatobiliary obstruction ORDER NUMBER(s): [id number], ACCESSION NUMBER(s): [id number] US limited, RUQ INDICATION: rule out hepatobiliary obstruction COMPARISON: US ABDOMEN LIMITED on DOS: 04/04/25, US GUIDED PARACENTESIS on DOS: 03/19/25 TECHNIQUE: Limited ultrasound of the abdomen was performed and reviewed. FINDINGS: The pancreas is not seen due to overlying bowel gas. The liver is echogenic and nodular suggestive of cirrhosis. Partially visualized ascites. Cholelithiasis. No significant gallbladder distention. Mild gallbladder wall thickening. Negative sonographic Loera's sign. The common bile duct measures 4 mm. The right kidney is 12.2 cm. No evidence for hydronephrosis. IMPRESSION: Cirrhosis with partially visualized ascites. Cholelithiasis with mild gallbladder wall thickening, nonspecific. This could be reactive. PATIENT: BRO CABRERA ACCT: [id number] UNIT: [id number] : 1980 LOC: ER ROOM / BED: / AGE / SEX: 44 / M ADM STATUS: REG ER SERVICE 1441 ORDERING PHYSICIAN: JEREMY OLIVAREZ MD PROCEDURE(s): CXRP - CHEST PORTABLE REASON: sob ORDER NUMBER(s): [id number], ACCESSION NUMBER(s): [id number] INDICATION: sob TECHNIQUE: Frontal view of the chest. COMPARISON: XR CHEST 1 VIEW on DOS: 03/11/25, XR RIBS LT on DOS: 12/09/24 FINDINGS: Lung volumes are low. There is bibasilar atelectasis. No definite effusions are seen. IMPRESSION: 1. Low lung volumes with bibasilar atelectasis. PATIENT: RBO CABRERA ACCT: [id number] UNIT: [id number] : 1980 LOC: ER ROOM / BED: / AGE / SEX: 44 / M ADM STATUS: REG ER SERVICE 1441 ORDERING PHYSICIAN: JEREMY OLIVAREZ MD PROCEDURE(s): ABPL - CT AB PEL WO CON-NO ORAL OR IV REASON: liver ORDER NUMBER(s): [id number], ACCESSION NUMBER(s): [id number] EXAM: CT CT AB PEL WO CON-NO ORAL OR IV History: liver Comparison Study: CT ABD/PEL on DOS: 03/11/25, CT ABD/PEL on DOS: 12/09/24 TECHNIQUE: Multidetector CT of the abdomen was performed from lung bases to pubic symphysis. Imaging was performed without IV contrast. Axial, coronal and sagittal multiplanar reformats were obtained from the axial data set by the technologist. Radiation Dose Information: CT Dose: CTDI volume is 21.89 mGy. Dose-length product is 1336.45 mGy*cm FINDINGS: Evaluation of solid organs is limited due to lack of intravenous contrast use. FINDINGS: Lung Bases: Mild atelectasis is seen at both lung bases. There is a mild left effusion. Liver: The liver is normal in size. No focal lesions. Gallbladder and Biliary Tree: Unremarkable Spleen: Unremarkable Pancreas: The pancreas is grossly normal in appearance. Adrenal Glands: Unremarkable Kidneys: Kidneys are grossly normal without calculi or hydronephrosis. Bladder: Grossly unremarkable for degree of distention. Bowel: The stomach is grossly normal in appearance. Small bowel and colon are normal in caliber and distribution. The appendix is not visualized; however, no secondary findings of acute appendicitis identified. Ascites: There is a very large volume of ascites Lymphadenopathy: No mesenteric, retroperitoneal or periportal lymphadenopathy. Abdominal Wall and Mesentery: Unremarkable. Vasculature: The visualized abdominal aorta is normal in size and caliber. Evaluation of abdominal and pelvic vessels is limited due to lack of intravenous contrast. Pelvic Organs: Unremarkable Musculoskeletal: No aggressive focal bony lesions, acute fractures or dislocation. Soft tissues: Unremarkable IMPRESSION: 1. Very large amount of ascites. 2. Mild atelectasis both lung bases. 3. Mild left effusion PATIENT: BRO CABRERA ACCT: [id number] UNIT: [id number] : 1980 LOC: ER ROOM / BED: / AGE / SEX: 44 / M ADM STATUS: REG ER SERVICE 0000 ORDERING PHYSICIAN: JEREMY OLIVAREZ MD PROCEDURE(s): ABDL - ABDOMEN LIMITED REASON: FLUID CHECK FOR POSSIBLE PARACENTESIS ORDER NUMBER(s): [id number], ACCESSION NUMBER(s): [id number] EXAM: US ABDOMEN LIMITED INDICATION: FLUID CHECK FOR POSSIBLE PARACENTESIS TECHNIQUE:: Grayscale and color Doppler sonographic imaging evaluation of the region of concern. COMPARISON: US ABDOMEN COMPLETE on DOS: 03/19/25 FINDINGS: Ascites seen in all 4 quadrants. Small left-sided chest pleural effusion. IMPRESSION: 1. Small volume ascites. Condition at Discharge: Stable Final Diagnosis/Problems List Liver cirrhosis with ascites Discharge Disposition: Home Discharge Instruct/Medications Diet: Cardiac 2g Na,low cholest Activity: No Restrictions, As Tolerated Follow Up/Referral: Outpatient with PCP, GI and DC clinic (Dr. Hutchison, Saturday PM clinic please) Medications: as per EMR Scheduled Ciprofloxacin Hcl (Cipro), 1 TAB PO BID Furosemide (Furosemide), 1 TAB PO DAILY, (Reported) Lactulose (Lactulose), 30 ML PO DAILY Metronidazole (Flagyl), 1 TAB PO TID Pantoprazole Sodium Sesquihydr (Pantoprazole Sodium Dr), 1 TAB PO DAILY, (Reported) Spironolactone (Spironolactone), 1 TAB PO DAILY, (Reported) Discharge Statement: "Patient was advised to return to the ER or call 911 if any headaches, dizziness, shortness of breath, chest pain, abdominal pain, bleeding, fevers, or worsening of medical condition. Patient was counseled about treatment plan, medications, possible side effects, patientverbalized understanding. All questions were answered to the best of my ability. This discharge took greater then 30 minutes in planning, reviewing documentation, counseling the patient, and discussing with other team members." ASSESSMENT ASSESSMENT Assessment Liver cirrhosis with ascites Visit Coding STANDARD RES Billing Provider: CHARLENE BEY MD Date of Service if different f: Apr 06, 2025 Common Visit Codes: 52524-[facility]/OBS DISCH DAY >30min JHONNY HUTCHISON Apr 06, 2025 17:14 CHARLENE BEY MD Apr 07, 2025 23:37
== END 2025-04-06 16:12 | disposition home or self-care (01) | DRG 280 ==
LOC: EDBD 14:37 → ER 14:37 → EEVIPCON 14:37 → OVERFLOW 17:51 → TELE-WESTW 23:18
PROVIDERS: ATTEND Internal Medicine
PROC: 0W9G3ZX Drainage of Peritoneal Cavity, Percutaneous Approach, Diagnostic (ICD-10-PCS; principal; 2025-04-05)
DX: K70.31 Alcoholic cirrhosis of liver with ascites (principal); K70.40 Alcoholic hepatic failure without coma; E43 Unspecified severe protein-calorie malnutrition; D68.9 Coagulation defect, unspecified; I11.0 Hypertensive heart disease with heart failure; I50.9 Heart failure, unspecified; D69.6 Thrombocytopenia, unspecified; K76.82 Hepatic encephalopathy; D53.9 Nutritional anemia, unspecified; Z68.35 Body mass index [BMI] 35.0-35.9, adult; K76.6 Portal hypertension; J98.11 Atelectasis; Z79.899 Other long term (current) drug therapy
CPT/HCPCS: 36415; 49083; 71045; 74176; 76705; 76942; 80053; 81001; 82140; 82607; 83690; 83735; 83880; 83986; 85025; 85610; 85730; 87071; 87205; 89051; 96365; 99291; 99292; G0378; J2405; J2543; P9047